=== PATIENT | male | born 1975 | race African-American/Black ===

== ENCOUNTER 2021-08-16 13:27 | Emergency (ER) | payer OTHER ==
[~2021-08-16] VITALS: Ht 188 cm; Wt 96.6 kg
--- NOTE | 2021-08-16 13:37 | NUR ---
BIB [facility] FROM [facility] C/O CHEST PAIN AND L SIDED NUMBNESS/PAIN FROM HEAD TO L LOWER EXTREMITY X 30 MINS AGO. AAOX4, DEEP RESPIRATIONS, PULSES 2+ BILATERALLY, SKIN IS WARM AND DRY. CHIP PERSON AT BEDSIDE. ON MONITOR. BP 167/110.
--- NOTE | 2021-08-16 13:39 | NUR ---
IV LINE IS ESTABLISHED, BLOOD SPECIMEN COLLECTED AND SENT TO THE LAB. THE LINE IS SALINE LOCKED.
[2021-08-16 13:55] LABS: BASOPHILS % (AUTO) 0.6 % (0.0-2.0); EOSINOPHILS % (AUTO) 0.5 % (0.0-6.0); HEMATOCRIT 42 % (39-51); HEMOGLOBIN 14.7 g/dL (13.5-17.5); LYMPHOCYTES # (AUTO) 1.1 K/uL (0.8-4.8); LYMPHOCYTES % (AUTO) 15.5 % (20.0-44.0); MEAN CORPUSCULAR HGB CONC 35 g/dl (31.0-36.0); MEAN CORPUSCULAR VOLUME 85 fL (80-96); MONOCYTES # (AUTO) 0.5 K/uL (0.1-1.30); MONOCYTES % (AUTO) 6.1 % (2.0-12.0); NEUTROPHILS # (AUTO) 5.7 K/uL (1.8-8.9); NEUTROPHILS % (AUTO) 77.3 % (43.0-81.0); PLATELET COUNT (AUTO) 171 K/uL (150-450); RED BLOOD CELL COUNT(AUTO) 5.02 MIL/uL (4.5-6.0); WHITE BLOOD COUNT (AUTO) 7.4 K/uL (4.3-11.0)
[2021-08-16 14:07] LABS: CALCIUM, SERUM 8.6 mg/dL (8.5-10.1); CREATININE 1.3 mg/dL (0.6-1.3); POTASSIUM 3.3 mmol/L (3.5-5.1)
--- NOTE | 2021-08-16 14:27 | NUR ---
PT TAKEN TO CT
[2021-08-16] MEDS ORDERED: MORPHINE SULFATE INJ 4 MG/ML DISP.SYRIN ONE (14:30)
[2021-08-16] MEDS ORDERED: NITROGLYCERIN 0.4 MG/TAB BOTTLE ONE (14:30)
[2021-08-16] MEDS ORDERED: ASPIRIN 325 MG TABLET ONE (14:30)
[2021-08-16] MEDS: MORPHINE SULFATE INJ 2 MG/ML DISP.SYRIN IV ONE (14:46)
[2021-08-16] MEDS: ASPIRIN 325 MG TABLET PO ONE (14:47)
[2021-08-16] MEDS: NITROGLYCERIN 0.4 MG/TAB BOTTLE SL ONE (14:50)
[2021-08-16] MEDS ORDERED: LABETALOL HCL IV 100MG VIAL ONE (15:31)
--- NOTE | 2021-08-16 15:41 | NUR ---
PT REPORTS WEEKNESS IN LEFT UPPER AND LOWER EXTREMITIES. MD NOTIFIED.
[2021-08-16] MEDS: LABETALOL 20 MG/4 ML VIAL IV ONE (15:43)
[2021-08-16] MEDS: LISINOPRIL (20MG) 20 MG TABLET PO STA (16:05)
--- NOTE | 2021-08-16 16:50 | NUR ---
PT LAYING COMFORTABLY IN BED, ALERT, TALKING TO POLICE OFFICERS.
--- NOTE | 2021-08-16 17:12 | NUR ---
IV removed. Catheter intact and site benign. Pressure and 4x4 applied to site. No bleeding noted.
--- NOTE | 2021-08-16 17:14 | NUR ---
Patient discharged to home in stable condition. Written and verbal after care instructions given. Patient verbalizes understanding of instruction.
[2021-08-16 17:15] VITALS: BP 149/92
== END 2021-08-16 17:10 ==
LOC: ER 13:33
DX: R07.89 Other chest pain (principal); I10 Essential (primary) hypertension; R20.0 Anesthesia of skin
CPT/HCPCS: 36415; 70450; 71045; 80048; 84484 ×2; 85025; 93005 ×3; 96374; 99291; J2270; J3490 ×2